=== PATIENT | female | born 1990 | race Two or more races ===

== ENCOUNTER 2020-10-14 11:15 | Inpatient (IN) | payer OTHER ==
[~2020-10-14] VITALS: Ht 160 cm; Wt 79.4 kg
[2020-10-14] MEDS ORDERED: HUMIRA40 MG/0.2 (13:36)
[2020-10-14] MEDS ORDERED: ACID REDUCER20 M1 PO (13:37)
[2020-10-14] MEDS ORDERED: PEPCID AC20 MG PO (13:37)
[2020-11-15] MEDS ORDERED: HYOSCYAMINE0.125 M1 SL (13:17)
[2020-11-15] MEDS ORDERED: OXYC1TAB9 PO (13:17)
== END 2020-11-15 15:08 | disposition home or self-care (01) | DRG 331 ==
LOC: SURH 10-21 09:15 → O/R 11-11 10:43 → SURH 11-11 10:43
PROVIDERS: ADMIT Surgery; ATTEND Surgery
PROC: 0DBH0ZZ Excision of Cecum, Open Approach (ICD-10-PCS; principal; 2020-11-11 12:45)
DX: K50.013 Crohn's disease of small intestine with fistula (principal); K50.00 Crohn's disease of small intestine without complications; K50.012 Crohn's disease of small intestine with intestinal obstruction; K50.014 Crohn's disease of small intestine with abscess; K52.89 Other specified noninfective gastroenteritis and colitis; E66.9 Obesity, unspecified; Z20.822 Contact with and (suspected) exposure to COVID-19

== ENCOUNTER 2020-11-09 12:17 | Outpatient (CLI) | payer OTHER ==
[~2020-11-09 12:17] MED LIST: ACID REDUCER20 M1 PO; HUMIRA40 MG/0.2; PEPCID AC20 MG PO
== END 2020-11-09 12:20 | disposition home or self-care (01) ==
LOC: LAB 12:17
PROVIDERS: ATTEND Surgery
DX: Z20.828 Contact with and (suspected) exposure to other viral communicable diseases (principal); Z59.1 Inadequate housing

== ENCOUNTER 2021-09-11 00:54 | Inpatient (IN) | payer OTHER ==
[~2021-09-11] VITALS: Ht 162.6 cm; Wt 140.0 kg
[~2021-09-11 00:54] MED LIST changes: +HYOSCYAMINE0.125 M1 SL; +OXYC1TAB9 PO
[2021-09-11] MEDS ORDERED: HUMIRA PEN40 MG/0.2 SQ (01:11)
[2021-09-13] MEDS ORDERED: OMEPRAZOLE40 MG (14:50)
[2021-09-13] MEDS ORDERED: DICLOFENAC SOD100 MG (14:50)
[2021-09-24] MEDS ORDERED: METRONIDAZOLE500 MG PO (16:10)
[2021-09-24] MEDS ORDERED: LEVOFLOXACIN500 MG PO (16:11)
== END 2021-09-24 18:59 | disposition home or self-care (01) | DRG 385 ==
LOC: ER 00:54 → SURH 10:13
PROVIDERS: ADMIT Surgery; ATTEND Surgery
PROC: 30233N1 Transfusion of Nonautologous Red Blood Cells into Peripheral Vein, Percutaneous Approach (ICD-10-PCS; 2021-09-11)
PROC: 02HV33Z Insertion of Infusion Device into Superior Vena Cava, Percutaneous Approach (ICD-10-PCS; 2021-09-11)
PROC: 0W9J30Z Drainage of Pelvic Cavity with Drainage Device, Percutaneous Approach (ICD-10-PCS; principal; 2021-09-14)
PROC: BW21YZZ Computerized Tomography (CT Scan) of Abdomen and Pelvis using Other Contrast (ICD-10-PCS; 2021-09-20)
DX: K50.014 Crohn's disease of small intestine with abscess (principal); K65.1 Peritoneal abscess; K50.013 Crohn's disease of small intestine with fistula; K60.3 Anal fistula; R10.31 Right lower quadrant pain; D64.9 Anemia, unspecified; B96.1 Klebsiella pneumoniae [K. pneumoniae] as the cause of diseases classified elsewhere; B96.20 Unspecified Escherichia coli [E. coli] as the cause of diseases classified elsewhere; B95.4 Other streptococcus as the cause of diseases classified elsewhere; B96.89 Other specified bacterial agents as the cause of diseases classified elsewhere; Z20.822 Contact with and (suspected) exposure to COVID-19; Z86.16 Personal history of COVID-19

== ENCOUNTER 2021-11-10 14:06 | Day surgery (SDC) | payer OTHER ==
[~2021-11-10 14:06] MED LIST changes: +DICLOFENAC SOD100 MG; +HUMIRA PEN40 MG/0.2 SQ; +LEVOFLOXACIN500 MG PO; +METRONIDAZOLE500 MG PO; +OMEPRAZOLE40 MG
== END 2021-11-10 15:00 | disposition home or self-care (01) ==
LOC: AMB-ENDOS 14:06
PROVIDERS: ATTEND Surgery
DX: K50.012 Crohn's disease of small intestine with intestinal obstruction (principal); K46.1 Unspecified abdominal hernia with gangrene; R63.4 Abnormal weight loss; K25.9 Gastric ulcer, unspecified as acute or chronic, without hemorrhage or perforation

== ENCOUNTER 2024-12-09 06:00 | Inpatient (IN) | payer OTHER ==
[~2024-12-09] VITALS: Ht 91.4 cm; Wt 85.3 kg
[2024-12-09] MEDS ORDERED: FLUMAZENIL 0.5 MG/5 ML ML IV STA (08:40)
[2024-12-09] MEDS ORDERED: ONDANSETRON HCL 2 MG/ML VIAL IV PRN ×2 (08:45→22:15)
[2024-12-09] MEDS ORDERED: MIDAZOLAM HCL 2 MG/2 ML VIAL IV ONE (08:45)
[2024-12-09] MEDS ORDERED: MORPHINE SULFATE 4 MG/ML VIAL IV PRN (08:45)
[2024-12-09] MEDS ORDERED: DIPHENHYDRAMINE HCL 50 MG/ML VIAL 1ML IV ONE (08:45)
[2024-12-09] MEDS ORDERED: RINGERS SOLUTION,LACTATED 1,000 ML IV SCH (08:45)
[2024-12-09] MEDS ORDERED: fentaNYL CITRATE 50 MCG/ML AMPUL IV PUSH ONE (08:45)
[2024-12-09] MEDS ORDERED: PANTOPRAZOLE SODIUM 40 MG/VIAL VIAL IV SCH (09:00)
[2024-12-09] MEDS ORDERED: METRONIDAZOLE/SODIUM CHLORIDE 500 MG/100 ML PIGGYBACK IV SCH (09:00)
[2024-12-09] MEDS ORDERED: CIPROFLOXACIN IN 5 % DEXTROSE 400 MG/200 ML PIGGYBAG IV SCH (09:00)
[2024-12-09 10:10] LABS: BASO % 0.7 % (0.1-1.2); EOS # 0.13 (0.04-0.54); EOS % 1.3 % (0.7-7.0); HEMOGLOBIN 13.7 g/dL (11.2-15.7); LYMPH # 2.13 (1.18-3.74); MEAN CORPUSCULAR HEMOGLOBIN 29.1 pg (25.6-32.2); MONO # 0.87 (0.24-0.82); MONO % 8.6 % (4.7-12.5); NEUT % 68.1 % (34.0-71.1); PLATELET COUNT 370 K/uL (163-369); RED BLOOD COUNT 4.71 M/uL (3.93-5.22); RED CELL DISTRIBUTION WIDTH 14.1 % (11.6-14.4)
[2024-12-09 10:20] LABS: INR 1.05; PARTIAL THROMBOPLASTIN TIME 26.6 SECONDS (22.0-34.0); PROTHROMBIN TIME 11.4 SECONDS (9.0-11.5)
[2024-12-09 10:42] LABS: ALBUMIN 3.7 gm/dL (3.4-5.0); CALCIUM 9.1 mg/dL (8.5-10.1); CREATININE SERUM 0.8 mg/dL (0.55-1.02); GFR 81.62; PHOSPHOROUS 3.3 mg/dL (2.5-4.9); POTASSIUM 4.7 mEq/L (3.5-5.1)
[2024-12-09] MEDS ORDERED: MORPHINE SULFATE 4 MG/ML VIAL IV ONE ×2 (18:25→19:25)
[2024-12-09] MEDS ORDERED: MORPHINE SULFATE 4 MG/ML CARTRIDGE IV SCH (20:46)
[2024-12-09] MEDS ORDERED: RINGERS SOLUTION,LACTATED 100 ML IV SCH (21:00)
[2024-12-09 21:27] VITALS: BP 133/78; O2SAT 98
[2024-12-09] MEDS ORDERED: OxyCODONE HCL 5 MG TABLET (ROXICODONE) PO PRN (22:15)
[2024-12-09] MEDS ORDERED: MORPHINE SULFATE 4 MG/ML CARTRIDGE IV PRN (22:15)
[2024-12-10 00:17] VITALS: BP 127/74; O2SAT 97
[2024-12-10] MEDS ORDERED: METRONIDAZOLE/SODIUM CHLORIDE 500 MG/100 ML PIGGYBACK IV SCH (01:00)
[2024-12-10] MEDS ORDERED: GABAPENTIN 300 MG CAPSULE PO SCH (01:00)
[2024-12-10] MEDS ORDERED: METOCLOPRAMIDE HCL 5 MG/ML VIAL IV SCH (01:00)
[2024-12-10] MEDS ORDERED: ACETAMINOPHEN 500 MG GEL..CAP PO SCH (02:00)
[2024-12-10 08:00] VITALS: BP 124/81; O2SAT 98
[2024-12-10 08:39] LABS: ALBUMIN 2.8 gm/dL (3.4-5.0); CALCIUM 8.4 mg/dL (8.5-10.1); CREATININE SERUM 0.66 mg/dL (0.55-1.02); GFR 101.91; MAGNESIUM 1.7 mg/dL (1.8-2.4); PHOSPHOROUS 3.2 mg/dL (2.5-4.9); POTASSIUM 4.61 mEq/L (3.5-5.1)
[2024-12-10] MEDS ORDERED: HYOSCYAMINE SULFATE 0.125 MG TAB.SUBL SL SCH (09:00)
[2024-12-10] MEDS ORDERED: SIMETHICONE 125 MG CAPSULE PO SCH (09:00)
[2024-12-10] MEDS ORDERED: FAMOTIDINE/PF 20 MG/2 ML VIAL IV PUSH SCH (09:00)
[2024-12-10] MEDS ORDERED: CELECOXIB 200 MG CAPSULE PO SCH (09:00)
[2024-12-10] MEDS ORDERED: CIPROFLOXACIN IN 5 % DEXTROSE 400 MG/200 ML PIGGYBAG IV SCH (09:00)
[2024-12-10] MEDS ORDERED: LACTOBACILLUS ACIDOPHILUS 1 CAP CAP PO SCH (09:00)
[2024-12-10 09:31] LABS: HEMATOCRIT 37.6 % (34.1-44.9); HEMOGLOBIN 12.4 g/dL (11.2-15.7); RED BLOOD COUNT 4.28 M/uL (3.93-5.22); RED CELL DISTRIBUTION WIDTH 14.4 % (11.6-14.4)
[2024-12-10 09:32] LABS: BASO % 0.3 % (0.1-1.2); EOS # 0.03 (0.04-0.54); EOS % 0.2 % (0.7-7.0); LYMPH % 9.1 % (19.3-53.1); MONO % 7.9 % (4.7-12.5); NEUT # 13.62 (1.56-6.13); NEUT % 82.1 % (34.0-71.1); PLATELET COUNT 334 K/uL (163-369)
[2024-12-10 16:00] VITALS: BP 119/72; O2SAT 97
[2024-12-10] MEDS ORDERED: POLYETHYLENE GLYCOL 3350 17 GM BLIST.PACK PO SCH (17:00)
[2024-12-10] MEDS ORDERED: ENOXAPARIN SODIUM 40 MG/0.4 ML SYRINGE SUBCUTANEO SCH (17:00)
[2024-12-11 01:26] VITALS: BP 100/64; O2SAT 100
[2024-12-11 08:00] VITALS: BP 123/77; O2SAT 99
[2024-12-11] MEDS ORDERED: ENOXAPARIN SODIUM 40 MG/0.4 ML SYRINGE SUBCUTANEO SCH (09:00)
[2024-12-11 16:00] VITALS: BP 99/61; O2SAT 99
[2024-12-11] MEDS ORDERED: GABAPENTIN 300 MG CAPSULE PO PRN (16:20)
[2024-12-12 01:38] VITALS: BP 108/66; O2SAT 100
[2024-12-12] MEDS ORDERED: INTESTINEX680 M1 PO (07:35)
[2024-12-12] MEDS ORDERED: NEURONTIN300 MG PO (07:36)
[2024-12-12] MEDS ORDERED: LEVSIN/SL0.125 MG SL (07:36)
[2024-12-12 08:00] VITALS: BP 121/77; O2SAT 100
[2024-12-12] MEDS ORDERED: TRAM1TAB98 PO (08:07)
== END 2024-12-12 14:27 | disposition home or self-care (01) | DRG 330 ==
LOC: AMB-ENDOS 06:00 → SURH 09:52 → O/R 09:52 → SURH 10:56 → AMB-ENDOS 13:00 → SURH 12-12 14:27
PROVIDERS: ADMIT Surgery; ATTEND Surgery
PROC: 0DTF4ZZ Resection of Right Large Intestine, Percutaneous Endoscopic Approach (ICD-10-PCS; principal; 2024-12-09)
PROC: 0DNW4ZZ Release Peritoneum, Percutaneous Endoscopic Approach (ICD-10-PCS; 2024-12-09)
PROC: 0D7E8DZ Dilation of Large Intestine with Intraluminal Device, Via Natural or Artificial Opening Endoscopic (ICD-10-PCS; 2024-12-09)
DX: K56.50 Intestinal adhesions [bands], unspecified as to partial versus complete obstruction (principal); K50.90 Crohn's disease, unspecified, without complications; L29.0 Pruritus ani